=== PATIENT | male | born 1970 | race Caucasian/White ===

== ENCOUNTER 2016-11-14 06:49 | Emergency (ER) | payer BC, OTHER ==
[~2016-11-14] VITALS: Ht 190.5 cm; Wt 94.5 kg
[~2016-11-14 06:49] MED LIST: RXC5 PO; oxycodone
[2016-11-14 06:54] VITALS: TEMP 36.5; O2SAT 97; Ht 190.5 cm; Wt 94.5 kg
--- NOTE | 2016-11-14 07:16 | EMERGENCY ROOM VISIT NOTE ---
ED Visit Note First contact with patient: 07:05 CHIEF COMPLAINT: Foot pain HISTORY OF PRESENT ILLNESS: This 46-year-old male patient presents to the emergency department ambulatory complaining of swelling and pain in the left foot at rest and worse with weight bearing. The patient reports that he has a history of foot fracture and surgical repair by Dr. Zeng in 2005. He states that he slipped and fell down the steps last night. He complains of isolated left foot and ankle pain. The patient rates the pain as sharp and 10/10. The patient has no relief of the pain. The patient is not able to walk. No numbness or weakness. No ankle pain. There are no lacerations of the foot. The patient is able to move all of their toes and their ankle without pain. He denies striking his head or having loss of consciousness. He denies any headache, nausea vomiting. He denies any neck pain. He denies any other injury. REVIEW OF SYSTEMS: GENERAL: A 6 system review of systems was completed with positives and pertinent negatives in the HPI. ALLERGIES: No known drug allergies MEDICATIONS: None PMH: None SOCIAL HISTORY: The patient lives locally. PHYSICAL EXAM: Vital Signs: Reviewed Nurse's notes, vital signs stable. GENERAL : This is a 46-year-old male, in no acute distress, but appears in pain, well- developed, well-nourished. MUSCULOSKELETAL: There is no visual deformity of the left foot. There is no erythema or ecchymosis. There is no warmth. There is tenderness and swelling over the fifth metatarsal of the left foot. The range of motion of the foot is moderately limited secondary to pain. There is no tenderness over the plantar fascia. Dorsi flexion 5/5 and Plantar flexion 5/5. There is no significant tenderness over the ankle. There is no proximal fibula tenderness. The skin is intact and there are no lacerations or puncture wounds. Dorsalis pedis pulse 2+. Capillary refill less than 2 seconds. EMERGENCY DEPARTMENT COURSE: I examined the patient. An X-ray of the left ankle and foot were reviewed by myself and radiology and reveals no fracture or dislocation. The patient was placed in a post-op shoe. The patient has his own crutches. He will be given a small prescription for Pickens. He should contact Dr. Zeng's office today to schedule a follow-up appointment. He should return with worsening symptoms. The patient was discharged home in good condition. LEFT FOOT MIN 3 VIEWS ROUTINE, LEFT ANKLE MIN 3 VIEWS ROUTINE CLINICAL HISTORY: fall, left foot pain, h/o fracture. Left ankle pain. COMPARISON STUDY: None. FINDINGS: Screw fixation of an old fracture of the proximal left fifth metatarsal. The hardware appears intact. Small focal area of irregularity along the lateral anterior calcaneus also is likely due to old injury. No acute fracture or dislocation within the left ankle or left foot. Soft tissues are unremarkable. IMPRESSION: Chronic and postoperative changes within the left foot. No acute fracture or dislocation within the left ankle or left foot. Current/Historical Medications Scheduled PRN Hydrocodone/Acetaminophen 5MG/325MG (Pickens 5MG/325MG), 1 TABLET PO Q4H PRN for Pain Allergies Coded Allergies: No Known Allergies (Unverified , 11/14/16) Vital Signs Date Time Temp Pulse Resp B/P (MAP) Pulse Ox O2 Delivery O2 Flow Rate FiO2 11/14/16 08:10 71 16 122/77 11/14/16 06:54 36.5 76 18 119/78 97 Room Air Departure Information Impression Primary Impression: Sprain of foot, left Dispostion Home / Self-Care Condition GOOD Prescriptions Hydrocodone/Acetaminophen 5MG/325MG (Pickens 5MG/325MG) Tab 1 TABLET PO Q4H Y for Pain, #18 TAB For Initial Treatment Prov: Annabel Loera PA-C 11/14/16 Referrals Rob Reddy D.O. (PCP) Stu Zeng M.D. Forms HOME CARE DOCUMENTATION FORM, IMPORTANT VISIT INFORMATION, Work Instructions Return To Work: 2 days Patient Instructions ED Sprain Foot, [facility] Additional Instructions Motrin 600 mg every 6-8 hours or moderate pain Pickens 1 tablet every 4-6 hours if needed for worse pain. Do not drink or drive while taking Pickens and do not take with Tylenol. Ice and elevation over the next 24-48 hours Wear the postop shoe and use crutches until seen by orthopedics Contact orthopedics today to schedule a follow-up appointment for further evaluation and management Return with any worsening symptoms
--- NOTE | 2016-11-14 07:42 | DIAGNOSTIC IMAGING REPORT ---
LEFT FOOT MIN 3 VIEWS ROUTINE, LEFT ANKLE MIN 3 VIEWS ROUTINE CLINICAL HISTORY: fall, left foot pain, h/o fracture. Left ankle pain. COMPARISON STUDY: None. FINDINGS: Screw fixation of an old fracture of the proximal left fifth metatarsal. The hardware appears intact. Small focal area of irregularity along the lateral anterior calcaneus also is likely due to old injury. No acute fracture or dislocation within the left ankle or left foot. Soft tissues are unremarkable. IMPRESSION: Chronic and postoperative changes within the left foot. No acute fracture or dislocation within the left ankle or left foot. Electronically signed by: Tera Deluna M.D. 11/14/2016 7:41 AM Dictated Date/Time: 11/14/2016 7:38 AM
[2016-11-14] MEDS ORDERED: HYDR-5688 PO (07:53)
[2016-11-14 08:10] VITALS: BP 122/77; PULSE 71
== END 2016-11-14 08:10 | disposition home or self-care (01) ==
LOC: C.EDB 06:51
DX: S93.602A Unspecified sprain of left foot, initial encounter (principal); W10.9XXA Fall (on) (from) unspecified stairs and steps, initial encounter; Z98.890 Other specified postprocedural states

== ENCOUNTER 2018-12-29 10:23 | Inpatient (IN) ==
--- NOTE | 2018-12-19 11:29 | PAT Medication Instructions ---
Medication Instructions Date of Service December 19, 2018 Home Medications Medication Instructions Recorded bupropion HCl XL 150 mg 24 hr 150 mg PO QAM #30 tab 12/03/18 tablet, extended release cholecalciferol (vitamin D3) 50,000 unit PO WK bupropion HCl XL 150 mg 24 hr tablet, extended release 150 mg PO QAM tramadol 50 mg PO HS Continue as directed cholecalciferol (vitamin D3) 50,000 unit PO WK Take morning of surgery With a small sip of water, OTHERWISE NOTHING TO EAT OR DRINK AFTER MIDNIGHT: bupropion HCl XL 150 mg 24 hr tablet, extended release 150 mg PO QAM Take evening before surgery tramadol 50 mg PO HS Other Notes If you have any questions please call us at [phone] or [phone] or [phone] or [phone]
--- NOTE | 2018-12-19 11:36 | Anesthesiology Consultation ---
Date of Service December 19, 2018 Assessment & Plan (1) Encounter for pre-operative examination: - History of difficult intubation on 09/15/13: Glidescope #4, ETT #8.0, Grade 3 View Chart Review Chart Review: Acceptable Risk for Surgery and Patient seen in Pre Admission Testing Consults Requested none Teaching & Discussion Pre-Anesthesia Teaching/Discussion Notes: Instructed NPO after midnight before surgery, except medications with 15 cc of water. Medication instructions provided according to the PAT guidelines. History Surgery Operation Date: 12/29/18 10:25 Proposed Procedures p L4-L5 Decompression and Fusion, - Reginaldo Cullen DO s Removal Hardware Spine - Reginaldo Cullen DO Height/Weight Height: 6 ft 3 in Weight: 103.7 kg Allergies Allergy/AdvReac Type Severity Reaction Status Date / Time banana Allergy Hives Verified 12/17/18 09:05 No Known Drug Allergies Allergy Verified 12/17/18 09:05 Medications Home Medications Medication Instructions Recorded Confirmed Last Taken cholecalciferol (vitamin D3) 50,000 unit PO WK 11/10/18 12/17/18 Unknown bupropion HCl XL 150 mg 24 hr 150 mg PO QAM #30 tab 12/03/18 12/17/18 Unknown tablet, extended release tramadol 50 mg PO HS 12/17/18 12/17/18 Unknown Past Medical History Medical History Cervicalgia (Acute) Fatigue (Acute) Insomnia (Acute) Lumbar disc disease (Acute) Lumbar radiculopathy, acute (Acute) Situational anxiety (Acute) Vitamin D deficiency (Acute) Compression fracture Depression Difficult airway for intubation 09/15/13: Glidescope #4, ETT #8.0, Grade 3 View Hx of Lyme disease TREATED 11/2018 [facility]-Suspected dx Exercise / Class Metabolic Activity II 4-5 Yardwork/Stairs/Walk up hill (Limited currently due to back injury. Able to climb FOS. Wal[place] alot in the [place]. Denies CP or SOB. ) Past Surgical History Surgical History History of back surgery L5-S1 Fusion 09/15/13: Glidescope #4, ETT #8.0, Grade 3 View History of surgery on arm RIGHT ORIF S/P foot surgery LEFT S/P nasal surgery History of esophagogastroduodenoscopy (EGD) X 2 Past Anesthesia History No Hx of Anesthesia Complications and No Family Hx of Anesthesia Complications History of PONV No Hx of PONV and No Hx of Motion Sickness (Got sick once on a boat on a fishing trip, otherwise no) Social History Smoking Status: Never smoker Do You Dip or Chew Tobacco: No Hx Alcohol Use: No Hx Substance Use: No Review of Systems Patient denies chest pain, shortness of breath, dyspnea on exertion, reflux, cough, wheezing, palpitations. +Joint Pain (Back) Physical Exam Vital Signs BP: 112/73 P: 67 R: 16 T: 98.0 SPO2: 99% on RA ENMT Thyromental Distance: > or= 3.5 Finger Breadths (3.5) Mallampati Class: I Neck normal visual inspection and trachea midline; neck extension not limited (does have some pain on extension) Respiratory normal respiratory effort Auscultation: lungs clear to auscultation bilaterally Cardiovascular Rate/Rhythm: regular rate and regular rhythm Heart Sounds: no murmur Neurologic moves all extremities Psychiatric Orientation: alert and oriented x 3 Testing Laboratory Results PT 9.8 Seconds (9.0-12.0) 12/19/18 11:49 INR 1.0 (0.9-1.1) 12/19/18 11:49 APTT 24.6 Seconds (21.0-31.0) 12/19/18 11:49 Urine Color Yellow 12/19/18 11:49 Urine Appearance Clear (Clear) 12/19/18 11:49 Urine pH 6.5 (4.5-7.5) 12/19/18 11:49 Ur Specific Beryl 1.015 (1.000-1.030) 12/19/18 11:49 Urine Protein Negative (Negative) 12/19/18 11:49 Urine Glucose (UA) Negative (Negative) 12/19/18 11:49 Urine Ketones Negative (Negative) 12/19/18 11:49 Urine Nitrite Negative (Negative) 12/19/18 11:49 Ur Leukocyte Esterase Negative (Negative) 12/19/18 11:49 Blood Type B Positive 12/19/18 11:49 Antibody Screen NEGATIVE 12/19/18 11:49 Laboratory Tests 11/10/18 11/10/18 16:29 16:29 WBC 6.12 Hgb 14.2 Hct 40.1 L Plt Count 226 Sodium 139 Potassium 3.8 Chloride 105 Carbon Dioxide 27 BUN 14 Creatinine 1.12 Glucose 91 Electrocardiogram Date: 11/10/18 Findings: + SB @ (52) Cannot rule out anterior infarct, age undetermined When compared with ECG of 08/28/13, No significant change was found Chest X-Ray Date: 12/19/18 Findings: + NAD
--- NOTE | 2018-12-19 12:21 | XRay Report ---
TWO VIEW CHEST CLINICAL HISTORY: Preoperative examination. FINDINGS: PA and lateral chest radiographs are compared to study dated 08/28/2013. The cardiomediastin al silhouette is unremarkable. There is bibasilar atelectasis. No airspace consolidation or pleural e ffusion is identified. There is no pneumothorax. The bony thorax appears intact. IMPRESSION: No active disease in the chest. Electronically signed by: Shiva Bee M.D. 12/19/2018 12:19 PM
[2018-12-19 13:41] LABS: Appearance Urine Clear (Clear); Bilirubin Urine Negative (Negative); Color Urine Yellow; Glucose Urine UA Negative (Negative); Ketones Urine Negative (Negative); Leukocyte Esterase Urine Negative (Negative); Nitrite Urine Negative (Negative); Protein Urine Negative (Negative); Specific Gravity Urine 1.015 (1.000-1.030); Urobilinogen Urine Negative (Negative); pH Urine 6.5 (4.5-7.5)
[2018-12-19 13:44] LABS: Partial Thromboplastin Ratio 0.9; Partial Thromboplastin Time 24.6 Seconds (21.0-31.0); Prothrombin Time 9.8 Seconds (9.0-12.0)
[~2018-12-29 10:23] MED LIST changes: +CEFAZOLIN 2000MG 2,000 MG/15 ML SYR IV SCH; +LR 15ML/HR IV SCH; -RXC5 PO; -oxycodone
[2018-12-29] MEDS ORDERED: fentaNYL citrate 100 MCG/2 ML VIAL ONE ×3 (11:45→13:23)
[2018-12-29] MEDS ORDERED: PROPOFOL IV EMULSION 10 MG/ML 20 ML VIAL IV ONE (11:45)
[2018-12-29] MEDS ORDERED: DEXAMETHASONE SOD INJ 4 MG/ML VIAL ONE ×2 (11:45→13:25)
[2018-12-29] MEDS ORDERED: LIDOCAINE HCL 2% 2 ML VIAL/AMP(20MG/ML) INFIL ONE (11:45)
[2018-12-29] MEDS ORDERED: MIDAZOLAM HCL 1 MG/ML 2ML VIAL ONE (11:45)
[2018-12-29] MEDS ORDERED: ONDANSETRON INJ 2 MG/ML 2 ML VIAL ONE ×2 (11:45→13:25)
[2018-12-29] MEDS ORDERED: SCOPOLAMINE 1.5 MG TDSY ONE (12:06)
[2018-12-29] MEDS ORDERED: SCOPOLAMINE 1.5 MG TDSY TD ONE (12:07)
--- NOTE | 2018-12-29 12:19 | History & Physical Bridge Note ---
Date of Service December 29, 2018 History & Physical Bridge Note I have examined the patient, reviewed the History & Physical and in the interval since the performance of the History & Physical I have noted the following changes of clinical significance: no changes noted
--- NOTE | 2018-12-29 12:22 | History & Physical Report ---
Date of Service December 29, 2018 Assessment & Plan (1) Spinal stenosis, lumbar region with neurogenic claudication: L4-L5 decompression and fusion L5-S1 hardware removal Present on Admission?: Yes History of Present Illness Chief Complaint: Back and bilateral leg pain Primary Care Provider: Ekta Monge PA-C This is a 48-year-old male who presents with chronic persistent back and bilateral leg pain. After failing extensive course of nonoperative care is here for surgical intervention. 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
[2018-12-29] MEDS ORDERED: BACITRACIN INJ 50,000 UNIT VIAL ONE (12:34)
[2018-12-29] MEDS ORDERED: BUPIVACAINE/EPINEPHRINE 0.5% MPF 1:200,000 30 ML VIAL ONE (12:35)
[2018-12-29] MEDS ORDERED: ROCURONIUM BROMIDE 10 MG/ML 5 ML VIAL ONE (13:26)
[2018-12-29] MEDS ORDERED: raNITIdine HCl 25 MG/ML VIAL IV ONE (13:26)
[2018-12-29] MEDS ORDERED: fentaNYL citrate 100 MCG/2 ML VIAL IV PRN (13:58)
[2018-12-29] MEDS ORDERED: ONDANSETRON INJ 2 MG/ML 2 ML VIAL IV PRN ×2 (13:58→15:42)
[2018-12-29] MEDS ORDERED: ePHEDrine sulfate 50 MG/ML AMP IV PRN (13:58)
[2018-12-29] MEDS ORDERED: ATROPINE SULFATE 0.1 MG/ML 10ML SYR IV PRN (13:58)
[2018-12-29] MEDS ORDERED: HYDROmorphone INJ 1 MG/ML SYRINGE IV PRN ×2 (13:58→15:59)
[2018-12-29] MEDS ORDERED: GLYCOPYRROLATE 0.2 MG/ML VIAL ONE (13:59)
[2018-12-29] MEDS ORDERED: HYDROmorphone INJ 2 MG/ML SYR/VIAL ONE (13:59)
[2018-12-29] MEDS ORDERED: NEOSTIGMINE METHYLSULFATE 1 MG/ML 10ML VIAL ONE (13:59)
[2018-12-29] MEDS ORDERED: FLOSEAL HEMOSTATIC MATRIX 10ML TOP ONE (14:15)
--- NOTE | 2018-12-29 14:27 | Operative Report ---
Post Operative Report Pre & Post Diagnosis Operation Date: 12/29/18 12:35 Pre-Op Diagnosis: Lumbar spinal stenosis with radiculopathy Post-Op Diagnosis: Same Procedure Operation Date: 12/29/18 12:35 Actual Procedures #1 removal of posterior instrumentation L5-S1. #2 expiration of fusion L5-S1. #3 lumbar decompression with medial facetectomies foraminotomies L4-5. #4 posterior spinal fusion L4-5 per #5 placement posterior instrumentation at L4-5 per #6 interbody fusion L4-5. #7 placement of peek cage 14 x 26 mm of L4-5. #8 placement of locally harvested morselized autograft in the posterior lateral gutters. #9 placement infuse collagen sponge combined with master graft in the posterior lateral gutters and ostial amp and interbody space. Surgeon Reginaldo Cullen, Fund Accountant Georgie Stock Estimated Blood Loss 75 Findings Consistent with Post-Op Diagnosis Specimens None Indications Is a 48-year-old male no well-known to me that presents with chronic persistent back and leg pain with her failing extensive course of nonoperative care is here for surgical intervention. Description of Procedure Patient was met with identified and informed consent obtained. He was then taken to the operative suite underwent intubation placed in a prone position on the Navin table on top of the Otis frame. All bony prominences well-padded eyes inspected to ensure no external pressure placed upon the peer at this point the lumbar spine was prepped and draped in a normal sterile fashion. Sharp dis section with the assistance of Bovie cautery was performed down to and exposing the lamina transverse processes of L4 and instrumentation at L5 and S1 levels bilaterally. Then proceeded with the hardware bilaterally at L5-S1 explain the fusion mass noting to be intact. Then performed a complete laminectomy of L4 including medial facetectomy and foraminotomies on the left to address severe stenosis. Pedicle screws were then placed in L4 and L5 bilaterally with assistance of fluoroscopy the purposes bret placed. By way of a transforaminal approach and left complete discectomy was performed endplates curetted to subcortical bleeding bone and a 14 x 26 mm peek cage filled with ostium bone graft tapped in position. The rods were then locked in final position bilaterally. The transverse processes of L4-L5 were then burred to subcortical bleeding bone. Infuse collagen sponge mass graft local autograft placed in the posterior lateral gutters. 15 round KAYDEN drain inserted. Incision was then closed with 1 Vicryl in the fascia 2-0 Vicryl subcutaneously for Monocryl for final skin closure. Steri-Strip sterile dressings placed. Patient will continue to PACU stable condition. Please note Georgie Stock was present throughout the entire procedure involved in patient positioning complex portions of the surgery and final skin closure. I attest to the content of the Intraoperative Record and any orders documented therein. Any exceptions are noted below.
--- NOTE | 2018-12-29 14:56 | Fluoroscopy Report ---
FL lumbar spine 2-3V HISTORY: 48 years-old Male L4-L5 DECOMPRESSION AND FUSION, L5-S1 HARDWARE REMOVAL COMPARISON: Lumbar spine 09/05/2018 TECHNIQUE: 2 spot fluoroscopic images of the lumbar spine were obtained utilizing 12.6 seconds fluoro scopy time FINDINGS: Discectomy changes redemonstrated at L5-S1. Laminectomy with posterior interbody bret and screw fusion at L4-L5 with discectomy. Status post removal of the fusion hardware at L5-S1. There is a few millim eters retrolisthesis L3 on L4 and L4 on L5. Mild spondylitic spurring. IMPRESSION: Fluoroscopic assistance as above. Please see operative report for further details. The above report was generated using voice recognition software. It may contain grammatical, syntax o r spelling errors. Electronically signed by: Kraig Jolly M.D. 12/29/2018 2:54 PM
--- NOTE | 2018-12-29 15:00 | Anesthesiology Progress Note ---
Date of Service December 29, 2018 Anesthesia Post Procedure Vital Signs Vital Signs: Temp Pulse Resp BP Pulse Ox 12/29/18 14:50 56 L 13 119/59 L 100 12/29/18 14:41 36 C L 50 L 13 125/72 97 Pain Intensity Lower Back: Pain Intensity: 4 Transfer of Care Handoff Completed per policy Notes Mental Status: alert / awake / arousable and participated in evaluation Patient Amnestic to Procedure: Yes Nausea / Vomiting: adequately controlled Pain: adequately controlled Airway Patency, RR, SpO2: stable & adequate BP & HR: stable & adequate Hydration State: stable & adequate Anesthetic Complications: no major complications apparent and Pt Satisfied with anesthetic care
[2018-12-29] MEDS ORDERED: MAGNESIUM HYDROXIDE SUSP 30 ML UDC PO PRN (15:42)
[2018-12-29] MEDS ORDERED: LORazepam 0.5 MG TAB PO PRN (15:42)
[2018-12-29] MEDS ORDERED: ONDANSETRON 4 MG TAB PO PRN (15:42)
[2018-12-29] MEDS ORDERED: OXYCODONE HCL IR 5 MG TAB (IMMEDIATE RELEASE) PO PRN (15:42)
[2018-12-29] MEDS ORDERED: ALUMINUM/MAGNESIUM SUSP 30 ML UDC PO PRN (15:42)
[2018-12-29] MEDS ORDERED: ACETAMINOPHEN 1,000 MG/100 ML VIAL IV PRN (15:42)
[2018-12-29] MEDS ORDERED: SOD PHOSPHATE/SOD BIPHOSPHATE ENEMA 132 ML BTL PR PRN (15:42)
[2018-12-29] MEDS ORDERED: FAMOTIDINE 20 MG TAB PO PRN (15:42)
[2018-12-29] MEDS ORDERED: DO NOT ADMINISTER PNEUMOCOCCAL VACCINE PRN (15:42)
[2018-12-29] MEDS ORDERED: HYDROmorphone INJ 0.5 MG/0.5 ML SYR IV PRN (15:42)
[2018-12-29] MEDS ORDERED: PROMETHAZINE HCL 12.5 MG in SODIUM CHLORIDE 0.9% 50 ML IV PRN (15:42)
[2018-12-29] MEDS ORDERED: METOCLOPRAMIDE HCL INJ 5 MG/ML 2 ML VIAL IV PRN (15:42)
[2018-12-29] MEDS ORDERED: DO NOT ADMINISTER FLU VACCINE PRN (15:42)
[2018-12-29] MEDS ORDERED: LORazepam 0.5 MG/1 ML VIAL IV PRN (15:42)
[2018-12-29] MEDS ORDERED: BISACODYL 10 MG SUPP PR PRN (15:42)
[2018-12-29] MEDS ORDERED: PROMETHAZINE HCL INJ 25 MG/ML 1 ML VIAL ONE (15:45)
[2018-12-29] MEDS ORDERED: CHECK SCOPOLAMINE PATCH PLACEMENT SCH (16:00)
[2018-12-29] MEDS: LACTATED RINGER'S 1,000 ML IV SCH ×2 (16:33→22:40)
[2018-12-29] MEDS: KETOROLAC 30 MG/ML VIAL IV SCH ×2 (17:23→23:20)
[2018-12-29] MEDS: CEFAZOLIN 2000MG 2,000 MG/15 ML SYR IV SCH (20:41)
[2018-12-29] MEDS: TRAMADOL HCL 50 MG TABLET PO SCH (21:09)
[2018-12-29] MEDS: DOCUSATE SODIUM/SENNA 50/8.6MG TAB PO SCH (21:09)
[2018-12-30] MEDS: CEFAZOLIN 2000MG 2,000 MG/15 ML SYR IV SCH (04:02)
[2018-12-30] MEDS: KETOROLAC 30 MG/ML VIAL IV SCH ×2 (05:15→12:13)
[2018-12-30] MEDS: POLYETHYLENE (MIRALAX) 17 GM PACK PO SCH ×4 (05:15→23:51)
[2018-12-30] MEDS: LACTATED RINGER'S 1,000 ML IV SCH (05:27)
[2018-12-30 06:33] LABS: Eosinophils # (auto) 0.04 K/uL (0-0.5); Eosinophils % (auto) 0.3 %; Hematocrit (blood only) 35.9 % (42-52); Hemoglobin 12.5 g/dL (14.0-18.0); Immature Granulocytes # (auto) 0.02 K/uL (0.00-0.02); Immature Granulocytes % (auto) 0.2 %; Lymphocytes # (auto) 1.42 K/uL (1.2-3.4); Lymphocytes % (auto) 11.9 %; Mean Corpuscular Hgb Conc 34.8 g/dL (32-36); Mean Corpuscular Volume 88.6 fL (80-100); Monocytes # (auto) 0.59 K/uL (0.11-0.59); Monocytes % (auto) 4.9 %; Neutrophils # (auto) 9.85 K/uL (1.4-6.5); Neutrophils % (auto) 82.7 %; Platelet Count 239 K/uL (130-400); RDW Coefficient of Variation 12.5 % (11.5-14.5); RDW Standard Deviation 40.1 fL (36.4-46.3); Red Blood Count 4.05 M/uL (4.7-6.1); White Blood Count 11.92 K/uL (4.8-10.8)
[2018-12-30 07:00] LABS: BUN Creatinine Ratio 11.9 (10-20); Calcium 8.7 mg/dl (8.5-10.1); Creatinine Clr Calc Pharmacy 100.1 ml/min; Est GFR (African American) 93.2; Est GFR (Non-African American) 80.4; Potassium 4.2 mmol/L (3.5-5.1)
--- NOTE | 2018-12-30 08:27 | Orthopedic Progress Note ---
Date of Service December 30, 2018 Assessment & Plan (1) Spinal stenosis, lumbar region with neurogenic claudication: This time continue physical therapy advance his bowel regimen anticipate discharge home in the next few days. Present on Admission?: Yes Subjective Back pain controlled leg symptoms improved. Physical Exam Physical Exam: Patient has good strength testing appears comfortable. Results & Data Vital Signs (Past 12 Hours) Vital Signs Temp Pulse Resp BP BP Pulse Ox 12/30/18 07:30 36.7 C 52 L 16 99/68 L 99 12/30/18 03:23 36.5 C 56 L 16 91/56 L 91/51 L 98 12/29/18 23:28 36.5 C 54 L 16 112/69 98
--- NOTE | 2018-12-30 08:28 | Anesthesiology Progress Note ---
Date of Service December 30, 2018 Anesthesia Post Procedure Vital Signs Vital Signs: Temp Pulse Pulse Resp BP BP Pulse Ox 12/30/18 07:30 36.7 C 52 L 16 99/68 L 99 12/30/18 03:23 36.5 C 56 L 16 91/56 L 91/51 L 98 12/29/18 23:28 36.5 C 54 L 16 112/69 98 12/29/18 18:34 36.4 C L 72 16 119/75 98 12/29/18 17:29 36.3 C L 62 16 118/74 99 12/29/18 16:31 36.5 C 49 L 14 107/68 98 12/29/18 16:03 36.4 C L 65 16 123/75 99 12/29/18 15:30 36.5 C 50 L 15 117/67 96 12/29/18 15:20 55 L 20 114/68 96 12/29/18 15:10 36.5 C 54 L 13 112/67 97 12/29/18 15:00 55 L 18 122/69 100 12/29/18 14:50 56 L 13 119/59 L 100 12/29/18 14:41 36 C L 50 L 13 125/72 97 Pain Intensity Lower Back: Pain Intensity: 4 Notes Mental Status: alert / awake / arousable and participated in evaluation Patient Amnestic to Procedure: Yes Nausea / Vomiting: adequately controlled Pain: adequately controlled Airway Patency, RR, SpO2: stable & adequate BP & HR: stable & adequate Hydration State: stable & adequate Anesthetic Complications: no major complications apparent and Pt Satisfied with anesthetic care
[2018-12-30] MEDS: TRAMADOL HCL 50 MG TABLET PO PRN (08:37)
[2018-12-30] MEDS: BuPROPion XL 150 MG TABCR PO SCH (08:38)
[2018-12-30] MEDS: TRAMADOL HCL 50 MG TABLET PO SCH (20:02)
[2018-12-30] MEDS: DOCUSATE SODIUM/SENNA 50/8.6MG TAB PO SCH (20:02)
[2018-12-31] MEDS: POLYETHYLENE (MIRALAX) 17 GM PACK PO SCH ×2 (05:38→11:47)
[2018-12-31] MEDS: BuPROPion XL 150 MG TABCR PO SCH (07:59)
--- NOTE | 2018-12-31 14:04 | Discharge Summary ---
Date of Service December 31, 2018 Admission HPI Per Admitting Provider This is a 48-year-old male who presents with chronic persistent back and bilateral leg pain. After failing extensive course of nonoperative care is here for surgical intervention. Admission Exam (Per Admitting) Constitutional WD/WN, vitals as above Eyes normal visual abel by confrontation ENMT external ear and nose normal, oropharynx normal Neck normal visual inspection Respiratory normal respiratory effort Cardiovascular RRR, no murmur, no edema Gastrointestinal (Abdomen) Inspection/Auscultation: abdomen normal to inspection Musculoskeletal no cyanosis or clubbing, extremities motor strength 5/5 Extremities: extremities normal to inspection and strength 5/5 throughout Skin no rashes, warm and dry Neurologic patellar DTR's 2+ bilat, sensation intact normal touch/pain/proprioception and CN's II-XI intact bilaterally Psychiatric A+Ox3, euthymic affect Discharge Data Consultations 12/29/18 15:42 Consult Case Management - Discharge Planning Routine Procedures Performed Operation Date: 12/29/18 12:35 Actual Procedures s L5-S1 Hardware Removal, - Reginaldo Cullen DO p L4-L5 Decompression & fusion, Placement of Interbody L4-L5, Application of Bone Morphogenetic Protein and Allograft - Reginaldo Cullen DO Hospital Course (1) Spinal stenosis, lumbar region with neurogenic claudication: Patient had an uncomplicated hospital course. Radicular leg pain and numbness has resolved. Back pain is controlled with tramadol. Lab values have been stable. He has been making progress with physical therapy. KAYDEN drain output is diminishing. He is passing flatus. No bowel movement. He would like to go home today which is postoperative day 2. Discharge Instructions ACTIVITY RECOMMENDATIONS: SELF CARE INSTRUCTIONS AFTER THORACIC/LUMBAR FUSIONS 1. You may walk to your tolerance. It is good exercise for your legs and back. Expect some back and intermittent leg aches and pains. 2. You may perform "counter-top" level activities (make a sandwich, pawel with a project, etc.). 3. No bending or lifting of more than 10 pounds or back twisting of any nature (roll like a log when turning in bed). 4. You may ride in a car for 20-30 minutes at a time. No driving until after your first visit with your doctor. 5. Frequent changes of position and restricting sitting to 30 minutes at a time will help limit the amount of back spasms and stiffness you may experience. 6. You may discontinue the use of ambulatory aids (cane, crutches, etc.) once your strength and confidence allow. 7. You may marketing information manager the shower and let water strike your incision when you arrive home at least once daily. Do not take a tub bath, sit in a hot tub or go into a swimming pool until after your first recheck in the office. SPECIAL CARE INSTRUCTIONS: VERY IMPORTANT TO READ AND REVIEW A. Your surgical incision has been closed with a cosmetic suture under the skin that will dissolve in about 6 weeks. In 14 days, you can use a pair of clean scissors and cut the suture that is left outside of the skin at the ends of your incision. 1. The small skin tapes can be removed 7 days after surgery if they have not fallen off by that point. 2. You may keep the wound open to air as much as possible to promote healing after post-op day number 5 unless told otherwise by your doctor. 3. If you think the wound looks like it is becoming infected (redness or worsening drainage) and/or you are experiencing fever, chill or worsening back pain and muscle spasms, contact the office so that we may evaluate you as soon as possible. B. Complications are uncommon, but please contact us if you have any signs or symptoms of: 1. wound infection (fever higher than 102.5 degrees F, redness, separation of wound, drainage, or increasing pain from the incision) 2. blood clots in legs (pain, swelling, redness and warmth in legs) 3. urinary tract infection (fever higher than 102.5 degrees F, burning upon urination or increased frequency of urination) 4. nerve problems (inability to walk on your toes or heels, numbness, loss of bowel or bladder control) 5. any other symptoms that concern you C. Please call the office at if you have any concerns or questions about your operation or recovery. D. No smoking! Smoking drastically decreases the chance of a solid fusion. E. Do not take any anti-inflammatory medications (Indocin, Advil, Motrin, Aspirin, Naprosyn, etc.) as these may inhibit the chance of a solid fusion. Tylenol is okay to take for pain. MANAGING PAIN AFTER SPINAL SURGERY 1. Narcotic medication is intended for short-term use and will be provided for surgical pain. Surgical pain usually lasts for a period of 4-6 weeks. Narcotic medication includes Percocet, Vicodin, Darvocet, Tylenol #3 or Lortab. 2. Longer-term pain is more appropriately treated with non-narcotic medication such as Tylenol ES. 3. Muscle spasm is not appropriately treated with narcotics. Muscle relaxers such as Soma, Flexeril or Skelaxin can be used along with Tylenol ES. 4. Remember that we all live with some "aches and pains". This is not unusual or uncommon after an injury or as we get older. a. Back pain is expected and may include muscle spasms for 4 to 6 weeks after surgery. The pain should gradually improve. If the pain worsens for no apparent reason, please contact the office. b. Intermittent leg pain may also be experienced and should not be concerned about unless it worsens for no apparent reason. If so, please contact the office. 5. We will provide appropriate medication within the normal guidelines of their prescribed use. We will also be very cautious and aware of potential abuse and extended duration of patients' medication needs. a. Pain medications are for your comfort and to assist with sleep and rest so that the tissue can heal. They are not provided in order to return to normal activity and should not be used through the day. To do so or worsening pain at night can result from ongoing tissue damage and development of tolerance to the prescribed medicine. 6. Please allow 2-3 days to process refills. Prescriptions will not be mailed but must be picked up at the office. FOLLOW UP VISIT: Keep your scheduled follow-up appointment. Any questions, please call the office at . Supervising Physician Co-Signing Physician Notes Dr. Reginaldo Cullen
[2018-12-31] MEDS: TRAMADOL HCL 50 MG TABLET PO PRN (15:43)
== END 2018-12-31 18:35 | disposition home or self-care (01) | DRG 455 ==
LOC: ASU 10:23 → 3E 14:31
DX: M48.062 Spinal stenosis, lumbar region with neurogenic claudication

== ENCOUNTER 2020-02-24 07:55 | Inpatient (IN) ==
--- NOTE | 2020-02-09 16:25 | PAT Medication Instructions ---
Medication Instructions Date of Service February 09, 2020 Home Medications cholecalciferol (vitamin D3) 50,000 unit PO WK duloxetine 60 mg capsule,delayed release 60 mg PO QAM Continue as directed cholecalciferol (vitamin D3) 50,000 unit PO WK (just do not take on morning of surgery) Take morning of surgery With a small sip of water, OTHERWISE NOTHING TO EAT OR DRINK AFTER MIDNIGHT: duloxetine 60 mg capsule,delayed release 60 mg PO QAM Other Notes If you have any questions please call us at [phone] or [phone] or [phone] or [phone]
--- NOTE | 2020-02-10 14:42 | Anesthesiology Consultation ---
Date of Service February 10, 2020 Assessment & Plan (1) Encounter for pre-operative examination: Chart Review Chart Review: Acceptable Risk for Surgery (pending preop Covid testing AM of surgery ) and Patient seen in Pre Admission Testing Per PAT appointment 02/10/2020, pt resides in [facility]. Traveled to [place] and [place], [place] (near [place]) in the past two weeks due son's traveling baseball team. No known Covid positive contacts or Covid related symptoms. Encouraged patient to social distance if outside at games and if not social distancing- needs to wear mask two weeks prior to surgery while at games. Educated patient to follow up with surgeon's office regarding Covid testing. Educated on importance of self quarantining, social distancing and wearing mask in public both for the patient and household contacts. Pt understands he cannot travel at all from time of Covid test until surgery. Also instructed no out of state travel prior to surgery. L5-S1 removal of hardware, L4-5 decompression and fusion 12/29/18= Done under [place] with Grade 1 view with Glidescope #3. ETT 8.0. Teaching & Discussion Pre-Anesthesia Teaching/Discussion Notes: Instructed NPO after midnight before surgery,except medications with 15 cc of water. Medication instructions provided according to the PAT guidelines. History Surgery Operation Date: 02/24/20 11:05 Proposed Procedures p L3-L4 Decompression Fusion, L4-L5 Hardware Removal, Spinal Cord Monitoring - Reginaldo Cullen, Height/Weight Height: 6 ft 4 in Weight: 105.8 kg Allergies Allergy/AdvReac Type Severity Reaction Status Date / Time banana Allergy Hives Verified 02/05/20 10:13 No Known Drug Allergies Allergy Verified 02/05/20 10:13 Medications Home Medications Medication Instructions Recorded Confirmed Last Taken cholecalciferol (vitamin D3) 50,000 unit PO WK 11/10/18 02/05/20 12/24/18 09:30 duloxetine 60 mg capsule,delayed 60 mg PO QAM 01/23/19 02/05/20 Unknown release Past Medical History Medical History (Updated 02/10/20 @ 15:13 by Belen Dean PA-C) Cervicalgia CHRONIC NECK AND BACK PAIN SINCE FRACTURED BACK IN 2013 Compression fracture Hx of L3 compression fracture Depression Fatigue Chronic issue - stable Hx of Lyme disease TREATED 11/2018 [facility]-Suspected dx- feels fatigue secondary previous Lymes disease Insomnia Due to back pain Exercise / Class Metabolic Activity II 4-5 Yardwork/Stairs/Walk up hill (one flight of stairs - no chest pain or SOB) Past Family History Family History Grandfather (Paternal) Cardiac disorder Myocardial infarction Grandmother (Maternal) Breast cancer Past Surgical History Surgical History Difficult airway for intubation 09/15/13: Glidescope #4, ETT #8.0, Grade 3 View History of back surgery L5-S1 Fusion 09/15/13: Glidescope #4, ETT #8.0, Grade 3 View 2019 LUMBAR FUSION History of esophagogastroduodenoscopy (EGD) X 2 History of surgery on arm RIGHT ORIF S/P foot surgery LEFT S/P nasal surgery Past Anesthesia History No Hx of Anesthesia Complications (Pt was combative post op with most recent back surgery ), Difficult Airway (glidescope used in the past ) and No Family Hx of Anesthesia Complications History of PONV History of PONV (one episode with nasal surgery ) and Hx of Motion Sickness (with being on boat in ocean ) Social History Smoking Status: Never smoker Do You Dip or Chew Tobacco: No Hx Alcohol Use: No Hx Substance Use: No substance use type: does not use Review of Systems Patient denies chest pain, shortness of breath, dyspnea on exertion, reflux, cough, wheezing, palpitations. No hx of seizures, stroke, HI, apnea/snoring. No hx of blood clots or blood tra nsfusions Physical Exam Vital Signs VITALS BP 118/74 P 67 TEMP 98.0 SP02 96% RESP 16 Constitutional no acute distress ENMT Mouth: no TMJ clicking Thyromental Distance: < 3.5 Finger Breadths (3.0) Mallampati Class: II Broken molar on left side Neck + limited neck extension (significant ) Respiratory normal respiratory effort; no respiratory distress Auscultation: lungs clear to auscultation bilaterally; no wheezes Cardiovascular Rate/Rhythm: regular rate and regular rhythm Heart Sounds: no murmur Vessels: no carotid bruit Musculoskeletal Spine: + pain with cervical ROM Neurologic moves all extremities Psychiatric Orientation: alert Testing Laboratory Results 02/10/20 14:58 02/10/20 14:58 PT 10.3 Seconds (9.0-12.0) 02/10/20 14:58 INR 1.0 (0.9-1.1) 02/10/20 14:58 APTT 24.6 Seconds (21.0-31.0) 02/10/20 14:58 Urine Color Yellow 02/10/20 14:58 Urine Appearance Clear (Clear) 02/10/20 14:58 Urine pH 7.5 (4.5-7.5) 02/10/20 14:58 Ur Specific [place] 1.016 (1.000-1.030) 02/10/20 14:58 Urine Protein Negative (Negative) 02/10/20 14:58 Urine Glucose (UA) Negative (Negative) 02/10/20 14:58 Urine Ketones Negative (Negative) 02/10/20 14:58 Urine Nitrite Negative (Negative) 02/10/20 14:58 Ur Leukocyte Esterase Negative (Negative) 02/10/20 14:58 Blood Type B Positive 02/10/20 14:58 Antibody Screen NEGATIVE 02/10/20 14:58 Electrocardiogram Date: 02/10/20 Findings: + SB @ (58) Chest X-Ray Date: 02/10/20 Findings: + NAD
--- NOTE | 2020-02-10 15:28 | XRay Report ---
XR chest Pre-admission PA/Lat HISTORY: 49 years-old Male pat preoperative exam. No acute chest complaints COMPARISON: Chest radiograph 12/19/2018 TECHNIQUE: PA and lateral views of the chest FINDINGS: Cardiomediastinal and hilar silhouettes are within normal limits. There is no pneumothorax, pleural e ffusion, airspace consolidation or overt pulmonary edema. Bones of the chest appear grossly intact. IMPRESSION: No acute process. ACT 112: Negative or not required by law. The above report was generated using voice recognition software. It may contain grammatical, syntax o r spelling errors. Electronically signed by: Kraig Jolly M.D. 02/10/2020 3:27 PM
[2020-02-10 15:50] LABS: Appearance Urine Clear (Clear); Bilirubin Urine Negative (Negative); Blood Urine Negative (Negative); Color Urine Yellow; Glucose Urine UA Negative (Negative); Ketones Urine Negative (Negative); Leukocyte Esterase Urine Negative (Negative); Nitrite Urine Negative (Negative); Protein Urine Negative (Negative); Specific Gravity Urine 1.016 (1.000-1.030); Urobilinogen Urine Negative (Negative); pH Urine 7.5 (4.5-7.5)
[2020-02-10 15:58] LABS: Mean Corpuscular Hgb Conc 34.4 g/dL (32-36); Mean Platelet Volume 11.1 fL (7.4-10.4); Platelet Count 270 K/uL (130-400)
[2020-02-10 16:04] LABS: Partial Thromboplastin Ratio 0.9; Partial Thromboplastin Time 24.6 Seconds (21.0-31.0); Prothrombin Time 10.3 Seconds (9.0-12.0)
[2020-02-10 16:18] LABS: BUN Creatinine Ratio 9.1 (10-20); Calcium 9.4 mg/dl (8.5-10.1); Est GFR (African American) 85.8; Est GFR (Non-African American) 74.1; Potassium 4.2 mmol/L (3.5-5.1)
[2020-02-10 16:29] LABS: Basophils # (auto) 0.01 K/uL (0-0.2); Basophils % (auto) 0.1 %; Eosinophils % (auto) 6.6 %; Hematocrit (blood only) 41.6 % (42-52); Hemoglobin 14.3 g/dL (14.0-18.0); Immature Granulocytes # (auto) 0.01 K/uL (0.00-0.02); Immature Granulocytes % (auto) 0.1 %; Lymphocytes # (auto) 2.39 K/uL (1.2-3.4); Lymphocytes % (auto) 31.7 %; Mean Corpuscular Hemoglobin 30.6 pg (25-34); Mean Corpuscular Volume 88.9 fL (80-100); Monocytes # (auto) 0.51 K/uL (0.11-0.59); Monocytes % (auto) 6.8 %; Neutrophils # (auto) 4.11 K/uL (1.4-6.5); Neutrophils % (auto) 54.7 %; RDW Coefficient of Variation 12.7 % (11.5-14.5); RDW Standard Deviation 40.9 fL (36.4-46.3); Red Blood Count 4.68 M/uL (4.7-6.1); White Blood Count 7.53 K/uL (4.8-10.8)
--- NOTE | 2020-02-10 19:27 | Electrocardiogram Report ---
Test Reason : Blood Pressure : / mmHG Vent. Rate : 058 BPM Atrial Rate : 058 BPM P-R Int : 174 ms QRS Dur : 094 ms QT Int : 426 ms P-R-T Axes : 067 014 058 degrees QTc Int : 418 ms Sinus bradycardia Otherwise normal ECG When compared with ECG of 10-NOV-2018 16:25, No significant change was found Confirmed by Sim Costa ([id number]) on 02/10/2020 7:26:48 PM Referred By: Reginaldo Cullen Confirmed By:Nate Costa
[~2020-02-24 07:55] MED LIST changes: +ACETAMINOPHEN 500 MG TAB PO SCH; +CeleBREX 200 MG CAP PO SCH; +DEXAMETHASONE SOD INJ 4 MG/ML VIAL ONE; +GABAPENTIN 900 MG DOSE PO SCH; +GLYCOPYRROLATE 0.2 MG/ML VIAL ONE; +LIDOCAINE HCL 2% 2 ML VIAL/AMP(20MG/ML) INFIL ONE; -LR 15ML/HR IV SCH; +MIDAZOLAM HCL 1 MG/ML 2ML VIAL ONE; +NEOSTIGMINE METHYLSULFATE 1 MG/ML 10ML VIAL ONE; +ONDANSETRON INJ 2 MG/ML 2 ML VIAL ONE; +PROPOFOL IV EMULSION 10 MG/ML 20 ML VIAL IV ONE; +ROCURONIUM BROMIDE 10 MG/ML 5 ML VIAL IV ONE; +fentaNYL citrate 100 MCG/2 ML VIAL ONE
--- NOTE | 2020-02-24 08:42 | History & Physical Bridge Note ---
Date of Service February 24, 2020 History & Physical Bridge Note I have examined the patient, reviewed the History & Physical and in the interval since the performance of the History & Physical I have noted the following changes of clinical significance: no changes noted
--- NOTE | 2020-02-24 08:43 | History & Physical Report ---
Date of Service February 24, 2020 Assessment & Plan (1) Spinal stenosis, lumbar region with neurogenic claudication: Admission and Anticipated Discharge Date Admission Date: L3-L4 decompression fusion, L4-L5 hardware removal History of Present Illness Chief Complaint: Back and leg pain Primary Care Provider: Ekta Monge PA-C This is a 49-year-old male well-known to me the presents with chronic persistent back and leg symptoms. After failing extensive course of nonoperative care is here for surgical intervention. Allergies Allergy/AdvReac Type Severity Reaction Status Date / Time banana Allergy Hives Verified 02/18/20 07:31 No Known Drug Allergies AdvReac Unknown Verified 02/24/20 08:33 Home Medications Home Medications Medication Instructions Recorded Confirmed Type bupropion HCl 150 mg 24 hr tablet, 150 mg PO QAM #30 tab 02/18/20 02/24/20 Rx extended release zolpidem 5 mg tablet 5 mg PO HS #15 tab 02/18/20 02/24/20 Rx Past Med/Surg History Medical History Cervicalgia CHRONIC NECK AND BACK PAIN SINCE FRACTURED BACK IN 2013 Compression fracture Hx of L3 compression fracture Depression Fatigue Chronic issue - stable Hx of Lyme disease TREATED 11/2018 [facility]-Suspected dx- feels fatigue secondary previous Lymes disease Insomnia Due to back pain Surgical History Difficult airway for intubation 09/15/13: Glidescope #4, ETT #8.0, Grade 3 View History of back surgery L5-S1 Fusion 09/15/13: Glidescope #4, ETT #8.0, Grade 3 View 2019 LUMBAR FUSION History of esophagogastroduodenoscopy (EGD) X 2 History of surgery on arm RIGHT ORIF S/P foot surgery LEFT S/P nasal surgery Family History Grandfather (Paternal) Cardiac disorder Myocardial infarction Grandmother (Maternal) Breast cancer Social History Smoking Status: Never smoker Second Hand Exposure: No; Do You Dip or Chew Tobacco: No; Tobacco Cessation Education Requested by Patient: No Hx Alcohol Use: No Hx Substance Use: No Preferred Language: Dominican Communication Ability: Effective Projects Manager Required: No Beliefs That Will Affect Care: None marital status: Current Living Situation: Family current occupational status: employed Other Information That Helps Us Care for You: No Feels Safe at Home: Yes Safety Concerns: Feels Safe At This Time Assistive Devices: Walker Physical Exam Physical Exam: Patient is alert and oriented neurologically intact. Heart regular in rhythm. Lungs clear to auscultation.
[2020-02-24] MEDS ORDERED: ePHEDrine sulfate 50 MG/ML AMP IV PRN (09:04)
[2020-02-24] MEDS ORDERED: fentaNYL citrate 100 MCG/2 ML VIAL IV PRN (09:04)
[2020-02-24] MEDS ORDERED: MEPERIDINE HCL 25 MG/ML CARP/VIAL IV PRN (09:04)
[2020-02-24] MEDS ORDERED: PHENYLEPHRINE 100MCG/ML 5ML SYR IV PRN (09:04)
[2020-02-24] MEDS ORDERED: ATROPINE SULFATE 0.1 MG/ML 10ML SYR IV PRN (09:04)
[2020-02-24] MEDS ORDERED: HYDROmorphone INJ 0.5 MG/0.5 ML SYR IV PRN ×2 (09:04→13:40)
[2020-02-24] MEDS ORDERED: ONDANSETRON INJ 2 MG/ML 2 ML VIAL IV PRN ×2 (09:04→13:40)
[2020-02-24] MEDS ORDERED: LABETALOL HCL IV 5 MG/ML 20ML IV PRN (09:04)
[2020-02-24] MEDS ORDERED: LR 15ML/HR IV SCH (09:30)
[2020-02-24] MEDS ORDERED: SCOPOLAMINE 1.5 MG TDSY TD ONE ×2 (10:12)
[2020-02-24] MEDS ORDERED: BACITRACIN INJ 50,000 UNIT VIAL ONE (10:17)
[2020-02-24] MEDS ORDERED: BUPIVACAINE/EPINEPHRINE 0.25% 1:200,000 30 ML VIAL ONE (10:17)
[2020-02-24] MEDS ORDERED: FLOSEAL HEMOSTATIC MATRIX 10ML TOP ONE (10:56)
[2020-02-24] MEDS ORDERED: SUGAMMADEX SODIUM 200 MG/2 ML VIAL IV ONE (12:12)
--- NOTE | 2020-02-24 12:14 | Operative Report ---
Post Operative Report Pre & Post Diagnosis Operation Date: 02/24/20 09:20 Pre-Op Diagnosis: Lumbar spinal stenosis with neurogenic claudication Post-Op Diagnosis: Same I identified the patient and participated in the time-out.: Yes Procedure Operation Date: 02/24/20 09:20 Actual Procedures #1 of instrumentation L4-5. #2 exploration of fusion L4-5 per #3 lumbar decompression with medial facetectomy foraminotomy L3-L4. #4 posterior spinal fusion L3-L4. #5 placed posterior instrumentation L2-6 interbody fusion L3-L4 per #7 placed a peek cage 13 x 26 mm at L3-L4. #8 placement locally harvested morselized autograft in the posterior gutters. #9 placement infuse collagen sponge, master graft in the posterior gutters and ostial amp interbody space. Surgeon Reginaldo Cullen DO Manager Database Administration Georgie Stock Estimated Blood Loss 250 Findings Consistent with Post-Op Diagnosis Specimens None Indications This is a 49-year-old male known to the presents with marked decline in status after failed extensive course of nonoperative care is here for the above- mentioned seizure. Description of Procedure Patient was met with identified informed consent obtained. Patient was then taken to the operative suite underwent an patient placed in a prone position the Navin table on top Otis frame. All bony prominences well-padded eyes inspected to ensure no external pressure placed upon the. This point the lumbar spine was prepped and draped in a sterile fashion. Sharp dissection with assistance of Bovie cautery was performed down to and exposing the lamina and transverse processes of L3 and instrumentation L4 and L5 bilaterally. Then proceeded move the hardware at L4 and L5 bilaterally explore the fusion mass noting it to be in tact and mature. And then performed a complete laminectomy of L3 including medial facetectomies and foraminotomies addressing severe spinal stenosis. Pedicle screws were then placed in L3 and L4 bilaterally with assistance of fluoroscopy and the appropriately sized bret placed. By way of a transforaminal approach on the left complete discectomy was performed endplates coated to subcortical bleeding bone and a 13 x 26 mm peek cage filled with osteo-bone graft tapped in position. The rods were then locked into final position bilaterally. The transverse processes of L3 and L4 were burred to subcortical bleeding bone. Infuse collagen sponge master graft local autograft was placed in the posterior lateral gutters. 15 round KAYDEN drain inserted. The incision was then closed with 1 Vicryl the fascia 2-0 Vicryl subcutaneously and 4 Monocryl for final skin closure. Steri-Strip sterile dressings placed. Patient waken taken to PACU stable condition. Please note spinal cord monitoring was last that the procedure no changes noted. Lastly Georgie Stock was present at the entire surgery involved the patient positioning complex portions of the surgery and final skin closure. I attest to the content of the Intraoperative Record and any orders documented therein. Any exceptions are noted below.
--- NOTE | 2020-02-24 12:33 | Fluoroscopy Report ---
FL lumbar spine 2-3V HISTORY: 49 years-old Male L3-4 DECOMPRESION, L4-5 RMOVAL chronic low back pain COMPARISON: Lumbar spine fluoroscopic images 12/29/2018 TECHNIQUE: 2 spot fluoroscopic images of the lumbar spine were obtained utilizing 9.7 seconds fluoros copy time FINDINGS: Discectomy changes are noted at L3-L4, L4-L5 and L5-S1. Posterior interbody bret and screw fusion hard cota is noted at L3-L4. There is apparent interval removal of the L4-L5 hardware. The hardware appear s intact. No acute fracture or unexpected retained foreign body. IMPRESSION: Fluoroscopic assistance as above. Please see operative report for further details. ACT 112: Negative or not required by law. The above report was generated using voice recognition software. It may contain grammatical, syntax o r spelling errors. Electronically signed by: Kraig Jolly M.D. 02/24/2020 12:32 PM
--- NOTE | 2020-02-24 13:12 | Anesthesiology Progress Note ---
Date of Service February 24, 2020 Anesthesia Post Procedure Vital Signs Vital Signs: Temp Pulse Pulse Resp BP Pulse Ox 02/24/20 13:05 63 12 124/64 95 02/24/20 12:55 56 L 12 115/60 100 02/24/20 12:45 78 14 122/70 100 02/24/20 12:37 36.5 C 62 6 L 120/71 98 02/24/20 08:15 36.7 C 55 L 20 123/84 99 Transfer of Care Handoff Completed per policy Notes Mental Status: alert / awake / arousable Patient Amnestic to Procedure: Yes Nausea / Vomiting: adequately controlled Pain: adequately controlled Airway Patency, RR, SpO2: stable & adequate BP & HR: stable & adequate Hydration State: stable & adequate Anesthetic Complications: no major complications apparent and Pt Satisfied with anesthetic care
[2020-02-24] MEDS ORDERED: NALOXONE HCL 0.4 MG/1 ML VIAL/CARP IV PRN (13:40)
[2020-02-24] MEDS ORDERED: ONDANSETRON 4 MG OD TAB PO PRN (13:40)
[2020-02-24] MEDS ORDERED: bisacodyL 10 MG SUPP PR PRN (13:40)
[2020-02-24] MEDS ORDERED: METOCLOPRAMIDE HCL INJ 5 MG/ML 2 ML VIAL IV PRN (13:40)
[2020-02-24] MEDS ORDERED: FAMOTIDINE 20 MG TAB PO PRN (13:40)
[2020-02-24] MEDS ORDERED: ACETAMINOPHEN 500 MG TAB PO PRN (13:40)
[2020-02-24] MEDS ORDERED: OXYCODONE HCL IR 5 MG TAB (IMMEDIATE RELEASE) PO PRN (13:40)
[2020-02-24] MEDS ORDERED: HYDROmorphone INJ 1 MG/ML SYRINGE IV PRN (13:40)
[2020-02-24] MEDS ORDERED: DO NOT ADMINISTER PNEUMOCOCCAL VACCINE PRN (13:40)
[2020-02-24] MEDS ORDERED: LORazepam 0.5 MG TAB PO PRN (13:40)
[2020-02-24] MEDS ORDERED: DO NOT ADMINISTER FLU VACCINE PRN (13:40)
[2020-02-24] MEDS ORDERED: PROMETHAZINE HCL 12.5 MG in SODIUM CHLORIDE 0.9% 50 ML IV PRN (13:40)
[2020-02-24] MEDS ORDERED: ALUMINUM/MAGNESIUM SUSP 30 ML UDC PO PRN (13:40)
[2020-02-24] MEDS ORDERED: SOD PHOSPHATE/SOD BIPHOSPHATE ENEMA 132 ML BTL PR PRN (13:40)
[2020-02-24] MEDS ORDERED: LORazepam 0.5 MG/1 ML VIAL IV PRN (13:40)
[2020-02-24] MEDS ORDERED: MAGNESIUM HYDROXIDE SUSP 30 ML UDC PO PRN (13:40)
[2020-02-24] MEDS ORDERED: ACETAMINOPHEN 1,000 MG/100 ML VIAL IV PRN (13:40)
[2020-02-24] MEDS: LACTATED RINGER'S 1,000 ML IV SCH ×2 (13:57→21:08)
[2020-02-24] MEDS: KETOROLAC 30 MG/ML VIAL IV SCH ×2 (15:54→21:07)
[2020-02-24] MEDS ORDERED: CHECK SCOPOLAMINE PATCH PLACEMENT SCH (16:00)
[2020-02-24] MEDS: CEFAZOLIN 2000MG 2,000 MG/15 ML SYR IV SCH (17:44)
[2020-02-24] MEDS: ZOLPIDEM TARTRATE 5 MG TAB PO SCH (21:07)
[2020-02-24] MEDS: DOCUSATE SODIUM/SENNA 50/8.6MG TAB PO SCH (21:07)
[2020-02-25] MEDS: KETOROLAC 30 MG/ML VIAL IV SCH ×2 (03:00→08:02)
[2020-02-25] MEDS: CEFAZOLIN 2000MG 2,000 MG/15 ML SYR IV SCH (03:00)
[2020-02-25] MEDS ORDERED: LR 15ML/HR IV SCH (06:00)
[2020-02-25] MEDS: POLYETHYLENE (MIRALAX) 17 GM PACK PO SCH ×4 (06:07→23:10)
[2020-02-25] MEDS: LACTATED RINGER'S 1,000 ML IV SCH (06:14)
[2020-02-25 06:30] LABS: Eosinophils # (auto) 0.04 K/uL (0-0.5); Eosinophils % (auto) 0.3 %; Hematocrit (blood only) 36.1 % (42-52); Hemoglobin 12.3 g/dL (14.0-18.0); Immature Granulocytes # (auto) 0.04 K/uL (0.00-0.02); Immature Granulocytes % (auto) 0.3 %; Lymphocytes % (auto) 14.2 %; Mean Corpuscular Hemoglobin 30.8 pg (25-34); Mean Corpuscular Hgb Conc 34.1 g/dL (32-36); Mean Corpuscular Volume 90.3 fL (80-100); Monocytes # (auto) 0.82 K/uL (0.11-0.59); Monocytes % (auto) 6.5 %; Neutrophils # (auto) 9.96 K/uL (1.4-6.5); Neutrophils % (auto) 78.7 %; Platelet Count 227 K/uL (130-400); RDW Coefficient of Variation 12.7 % (11.5-14.5); RDW Standard Deviation 41.8 fL (36.4-46.3); White Blood Count 12.66 K/uL (4.8-10.8)
[2020-02-25 07:02] LABS: BUN Creatinine Ratio 12.4 (10-20); Calcium 8.6 mg/dl (8.5-10.1); Creatinine Clr Calc Pharmacy 108.7 ml/min; Est GFR (African American) 90.5; Est GFR (Non-African American) 78.1; Potassium 3.8 mmol/L (3.5-5.1)
[2020-02-25] MEDS: BuPROPion XL 150 MG TABCR PO SCH (08:02)
[2020-02-25] MEDS: TRAMADOL HCL 50 MG TABLET PO PRN ×3 (10:01→22:07)
--- NOTE | 2020-02-25 11:21 | Orthopedic Progress Note ---
Date of Service February 25, 2020 Assessment & Plan (1) Spinal stenosis, lumbar region with neurogenic claudication: Admission and Anticipated Discharge Date Admission Date: February 24, 2020 This time we will continue physical therapy monitor his KAYDEN output anticipate discharge home in the next few days. Subjective Back pain is controlled leg symptoms markedly improved. Physical Exam Physical Exam: Patient is in the chair at the bedside. Is excellent strength testing. Appears comfortable. Results & Data ([facility]) Vital Signs (Past 12 Hours) Vital Signs Temp Pulse Pulse Pulse Resp BP BP 02/25/20 08:00 36.7 C 56 L 16 115/71 02/25/20 06:14 59 L 108/67 02/25/20 03:11 36.6 C 59 L 18 102/56 L 02/24/20 23:49 36.9 C 75 20 99/62 L Pulse Ox 02/25/20 08:00 99 02/25/20 06:14 02/25/20 03:11 95 02/24/20 23:49 94
[2020-02-25] MEDS: ZOLPIDEM TARTRATE 5 MG TAB PO SCH (22:07)
[2020-02-25] MEDS: DOCUSATE SODIUM/SENNA 50/8.6MG TAB PO SCH (22:08)
[2020-02-26] MEDS: TRAMADOL HCL 50 MG TABLET PO PRN (06:32)
[2020-02-26] MEDS: POLYETHYLENE (MIRALAX) 17 GM PACK PO SCH ×2 (06:33→11:47)
[2020-02-26] MEDS: BuPROPion XL 150 MG TABCR PO SCH (07:43)
[2020-02-26] MEDS ORDERED: DEXAMETHASONE SOD PHOSPHATE 8 MG in SYRINGE 0 ML IV SCH (09:00)
[2020-02-26] MEDS ORDERED: COUGH DROP (SUGAR FREE) LOZ 24 LOZ/1 BOX BUCCAL STA (10:37)
--- NOTE | 2020-02-26 11:40 | Discharge Summary ---
Date of Service February 26, 2020 Admission HPI Per Admitting Provider This is a 49-year-old male well-known to me the presents with chronic persistent back and leg symptoms. After failing extensive course of nonoperative care is here for surgical intervention. Principal Diagnosis Lumbar spinal stenosis with neurogenic claudication Discharge Data Allergies Allergy/AdvReac Type Severity Reaction Status Date / Time banana Allergy Hives Verified 02/18/20 07:31 No Known Drug Allergies AdvReac Unknown Verified 02/24/20 08:33 Consultations 02/24/20 13:40 Consult Case Management - Discharge Planning Routine Procedures Performed Operation Date: 02/24/20 09:20 Actual Procedures p L3-L4 Decompression Fusion, Spinal Cord Monitoring(Not Applicable) - Reginaldo Cullen DO s L4-L5 Hardware Removal(Not Applicable) - Reginaldo Cullen DO Ordered Studies 02/24/20 09:20 FL fluoroscopy <1hr Routine FL lumbar spine 2-3V Routine Hospital Course (1) Spinal stenosis, lumbar region with neurogenic claudication: Patient went lumbar decompression fusion tolerated so was taken to the orthopedic floor postoperative. Postop day 1 he was up and ambulating leg symptoms markedly improved. He rested postop day 2. Back pain controlled leg pain markedly improved KAYDEN drain decreasing probably. Excellent strength testing. Subsequently discharged home. Discharge orders instructions from the chart for further review. Total Time Total Time Spent Total Time Spent (In Minutes): 20 minutes Discharge Plan Discharge Items Patient Disposition: Home - Self-Care Reason For Visit: Spinal Stenosis, Lumbar Region without Neurogenic Discharge Diagnosis: Lumbar spinal stenosis neurogenic claudication Activity: As commented below Non-emergency contact: Primary Care Provider Call non-emergency contact if: you have any medication questions Follow-up/Referrals: Ekta Monge PA-C [Primary Care Provider] - Diet: Regular Addtl Attending Provider Instructions: ACTIVITY RECOMMENDATIONS: SELF CARE INSTRUCTIONS AFTER THORACIC/LUMBAR FUSIONS 1. You may walk to your tolerance. It is good exercise for your legs and back. Expect some back and intermittent leg aches and pains. 2. You may perform "counter-top" level activities (make a sandwich, pawel with a project, etc.). 3. No bending or lifting of more than 10 pounds or back twisting of any nature (roll like a log when turning in bed). 4. You may ride in a car for 20-30 minutes at a time. No driving until after your first visit with your doctor. 5. Frequent changes of position and restricting sitting to 30 minutes at a time will help limit the amount of back spasms and stiffness you may experience. 6. You may discontinue the use of ambulatory aids (cane, crutches, etc.) once your strength and confidence allow. 7. You may electric milkers installer the shower and let water strike your incision when you arrive home at least once daily. Do not take a tub bath, sit in a hot tub or go into a swimming pool until after your first recheck in the office. SPECIAL CARE INSTRUCTIONS: VERY IMPORTANT TO READ AND REVIEW A. Your surgical incision has been closed with a cosmetic suture under the skin that will dissolve in about 6 weeks. In 14 days, you can use a pair of clean scissors and cut the suture that is left outside of the skin at the ends of your incision. 1. The small skin tapes can be removed 7 days after surgery if they have not fallen off by that point. 2. You may keep the wound open to air as much as possible to promote healing after post-op day number 5 unless told otherwise by your doctor. 3. If you think the wound looks like it is becoming infected (redness or worsening drainage) and/or you are experiencing fever, chill or worsening back pain and muscle spasms, contact the office so that we may evaluate you as soon as possible. B. Complications are uncommon, but please contact us if you have any signs or symptoms of: 1. wound infection (fever higher than 102.5 degrees F, redness, separation of wound, drainage, or increasing pain from the incision) 2. blood clots in legs (pain, swelling, redness and warmth in legs) 3. urinary tract infection (fever higher than 102.5 degrees F, burning upon urination or increased frequency of urination) 4. nerve problems (inability to walk on your toes or heels, numbness, loss of bowel or bladder control) 5. any other symptoms that concern you C. Please call the office at if you have any concerns or questions about your operation or recovery. D. No smoking! Smoking drastically decreases the chance of a solid fusion. E. Do not take any anti-inflammatory medications (Indocin, Advil, Motrin, Aspirin, Naprosyn, etc.) as these may inhibit the chance of a solid fusion. Tylenol is okay to take for pain. MANAGING PAIN AFTER SPINAL SURGERY 1. Narcotic medication is intended for short-term use and will be provided for surgical pain. Surgical pain usually lasts for a period of 4-6 weeks. Narcotic medication includes Percocet, Vicodin, Darvocet, Tylenol #3 or Lortab. 2. Longer-term pain is more appropriately treated with non-narcotic medication such as Tylenol ES. 3. Muscle spasm is not appropriately treated with narcotics. Muscle relaxers such as Soma, Flexeril or Skelaxin can be used along with Tylenol ES. 4. Remember that we all live with some "aches and pains". This is not unusual or uncommon after an injury or as we get older. a. Back pain is expected and may include muscle spasms for 4 to 6 weeks after surgery. The pain should gradually improve. If the pain worsens for no apparent reason, please contact the office. b. Intermittent leg pain may also be experienced and should not be concerned about unless it worsens for no apparent reason. If so, please contact the office. 5. We will provide appropriate medication within the normal guidelines of their prescribed use. We will also be very cautious and aware of potential abuse and extended duration of patients' medication needs. a. Pain medications are for your comfort and to assist with sleep and rest so that the tissue can heal. They are not provided in order to return to normal activity and should not be used through the day. To do so or worsening pain at night can result from ongoing tissue damage and development of tolerance to the prescribed medicine. 6. Please allow 2-3 days to process refills. Prescriptions will not be mailed but must be picked up at the office. FOLLOW UP VISIT: Keep your scheduled follow-up appointment. Any questions, please call the office at . Pending Studies at Discharge: No Stand-Alone Forms: My [facility] BitX, Opioid Pain Management, Smoking Cessation Medications and DC Order Prescriptions: New tramadol 50 mg tablet 50 mg PO Q6H PRN (Reason: pain, moderate) Qty: 20 RF: 0 oxycodone 5 mg tablet 5 mg PO Q6H PRN (Reason: pain, severe) Qty: 20 RF: 0 Continued bupropion HCl [Wellbutrin XL] 150 mg tablet extended release 24 hr 150 mg PO QAM Qty: 30 RF: 1 zolpidem [Ambien] 5 mg tablet 5 mg PO HS Qty: 15 RF: 0 Discharge Orders: Discharge Order (Routine); Ordered 02/26/20 Ordered By: Reginaldo Cullen Admission Data Admit Date/Time: 02/24/20 12:35 Attending Provider: Reginaldo Cullen Admit Provider: Reginaldo Cullen Primary Care Provider: Ekta Monge Other Interventions: Discharge Summary Assessment (RN) Last Done: 02/26/20 09:47
== END 2020-02-26 14:55 | disposition home or self-care (01) | DRG 455 ==
LOC: ASU 07:55 → 3E 12:35
DX: M48.062 Spinal stenosis, lumbar region with neurogenic claudication; Z79.899 Other long term (current) drug therapy